=== PATIENT | female | born 1990 | race Caucasian/White ===

== ENCOUNTER → 2018-04-24 | Outpatient (CLI) | payer OTHER | LOC: ULTRA 14:38 | DX: M71.21 Synovial cyst of popliteal space [Baker], right knee (principal) ==

== ENCOUNTER → 2018-07-16 | Outpatient (CLI) | payer OTHER | LOC: ULTRA 16:28 | DX: M25.461 Effusion, right knee (principal); M79.661 Pain in right lower leg ==

== ENCOUNTER 2018-09-17 05:19 | Observation (INO) | payer OTHER ==
[~2018-09-17] VITALS: Ht 175.3 cm; Wt 85.7 kg
[~2018-09-17 05:19] MED LIST: VENTOLIN HFA 1818 GM INH
[2018-09-17 10:22] VITALS: BP 148/87
[2018-09-17 19:03] VITALS: BP 133/72
[2018-09-18 03:21] VITALS: BP 118/66
[2018-09-18 07:20] VITALS: BP 123/85
--- NOTE | 2018-09-18 10:28 | O ---
[address] [address] OPERATIVE REPORT Name: SATISH LEVY Room #: 418-P [facility]#: [id number] Admission: 09/17/18 ������������������ Attend Phys: Varinder Hilario MD Discharge: ������������������ Date of : [birth year] Report #: [id number] THIS REPORT FOR: //name// CC: CAROL ANN physician/PCP Varinder Hilario DATE OF SERVICE: 09/17/2018 SERVICE: Orthopedics. FACILITY: [facility]. SURGEON: Varinder Hilario MD FUNDRAISING DIRECTOR: Afshan Garcia NP. INDICATION FOR FUNDRAISING DIRECTOR: Extremity positioning, retraction, assistance with the grafting and reconstruction and hardware implantation assistance. PREOPERATIVE DIAGNOSES: 1. High-grade articular cartilage lesion, right femur. 2. Right knee pain and swelling. 3. Patellar maltracking, right knee. 4. Patella carisa, right knee. POSTOPERATIVE DIAGNOSES: 1. High-grade articular cartilage lesion, right femur. 2. Right knee pain and swelling. 3. Patellar maltracking, right knee. 4. Patella carisa, right knee. 5. Adhesions, right knee. PROCEDURES: 1. Open matrix based autologous chondrocyte implantation, right knee (EMILY). 2. Anterior medial and distalizing tibial tubercle osteotomy, right knee. 3. Lateral release, right knee (distal structures only). 4. Open lysis of adhesions, right knee. ANESTHESIA TYPE: General with regional. COMPLICATIONS: None. DRAINS: None. SPECIMENS: None. [address] [address] OPERATIVE REPORT Name: SATISH LEVY Room #: 418-P [facility]#: [id number] Admission: 09/17/18 ������������������ Attend Phys: Varinder Hilario MD Discharge: ������������������ Date of : [birth year] Report #: [id number] FINDINGS: 1. Two articular cartilage grafts, one placed at the medial trochlea where an insufficient healing response was noted of the articular cartilage from chondroplasty, second was of the medial femoral condyle. 2. Tibial tubercle osteotomy performed to address the patellar instability and maltracking as well as patella carisa with approximately 3 mm of distalization. HISTORY: The patient is a young lady with a history of significant lifestyle limiting right knee pain that had failed all conservative measures including rest, activity modifications, physical therapy, injections, oral medicines and modalities. 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 She underwent chondroplasty and arthroscopy with cartilage biopsy for planned staged articular cartilage grafting, ultimately electing to proceed with stage 2 as she had failed to have adequate relief from stage 1. Risks, benefits, alternatives and indications for the surgery discussed with her in detail. Risks include but not limited to pain, bleeding, infection, injury to nerves or blood vessels, persistent pain despite surgical intervention, progression of any preexisting chondral injury, stiffness, need for further surgery as well as complications related to anesthesia such as stroke, heart attack, pulmonary complications, thromboembolic disease and . PROCEDURE IN DETAIL: After right lower extremity was correctly identified in preoperative holding as operative extremity, the patient underwent placement of a single shot regional nerve block. She was then taken to the operating room where general anesthesia was induced without complication. She was padded appropriately. Prophylactic antibiotics were administered at appropriate time. Tourniquet was applied to right leg. Right lower extremity was prepped and draped in standard sterile fashion. Time-out procedure was performed. Esmarch was used to exsanguinate. Tourniquet was inflated to 250 mmHg. Anterior approach was made to the knee with a standard medial parapatellar arthrotomy. The patient was noted to have a fair amount of adhesions present. She had experienced a very slow postoperative course after the first surgery with significant guarding and ambulation limitations which we were eventually able to work through by continued counseling and engagement through the physical therapy team, ultimately achieving acceptable range of motion; however, she did have a fair amount of these adhesions that had formed in the interim. She had a sheet of scarring around the front of the knee that incorporated the retropatellar tendon fat pad as well as anterior horn of the medial meniscus with some tethering of the meniscus. The retropatellar tendon fat pad was resected. A lateral release was performed of the distal half of the lateral retinacular structures. Proximal release was not performed in order to preserve the vascularity of the patella superolaterally. In the exposure of the articular cartilage, pathology was visualized. The ACL was intact. The [address] [address] OPERATIVE REPORT Name: MILDREDSATISH M Room #: 418-P [facility] M.R.#: [id number] Admission: 09/17/18 ������������������ Attend Phys: Varinder Hilario MD Discharge: ������������������ Date of : 89 Report #: [id number] compartment was intact. The patella was intact, although it did track laterally. I used a saw then to perform an oblique tibial tubercle osteotomy and then resected the distal 3 mm of the osteotomized tibial tubercle segment in order to adequately advance the tubercle distally. She had a fair amount of small venous structures, which I coagulated during the exposure meticulously in order to minimize the amount of bleeding we encountered when the tourniquet came down and then postoperatively in order to avoid any unnecessary insult to the chondral sites that were being implanted. The articular cartilage was exposed. The anterior horn takedown was required in order to access the medial compartment fully. This was repaired at the end. The lysis of adhesions was completed sharply during the exposure as well. At this point, the templates were used to assess the size of the defects. Two oval templates were used with the smallest for the trochlear lesion and then the medium sized for the medial femoral condyle lesion. Sharp blade was then used to resect the chondral debris and the ring curette used to take it down to the calcified cartilage layer in a typical preparation technique. Tourniquet was let down. A thrombin-soaked Gelfoam was placed in the defects. There was minimal bleeding in the articular cartilage defects. Hemostasis was achieved in the soft tissues and the arthrotomy. The graft was then prepared and a thin layer of fibrin glue was placed at the base of the defects and then the grafts were laid in place and then the fibrin glue was allowed to cure. A perimeter of fibrin glue was then applied to the edges and allowed to cure as well. There was an area on the anterolateral aspect of the medial femoral condyle lesion that did not achieve complete coverage of the fibrin glue and even with reapplication, the gravity was pulling it away, so I felt like reinforcement was most appropriate and used a total of 5 sutures to secure this in the original ACI surgical technique with a 6-0 Vicryl suture and this provided good secure repair of the matrix membrane and the defect. The wound was then gently irrigated. It was flexed and extended to ensure that there was no instability of the cartilage graft and then we proceeded to fix the osteotomy. While the tibial tubercle was held, translated medially slightly anteriorly and then distally, 2.0 K-wires were used to provisionally fix the tibial tubercle and then these were switched to a 4.0 fully threaded non-cannulated cortical screws with good compression achieved at the fracture, some residual bone graft that had been obtained in the exposure was placed at the lateral aspect of the osteotomy and then again we irrigated the wound, confirmed hemostasis and closed the arthrotomy with 0 Vicryl suture in [id number] fashion. The skin was closed with 2-0 Vicryl, followed by running subcuticular 3-0 Monocryl. Dermabond and sterile dressing was applied. A compression stocking, followed by a PolarCare device and a hinged knee brace set at 0-30 degrees was applied as well. [address] [address] OPERATIVE REPORT Name: SATISH LEVY Lonnie Room #: 418-P [facility].#: [id number] Admission: 09/17/18 ������������������ Attend Phys: Varinder Hilario MD Discharge: ������������������ Date of : [birth year] Report #: [id number] The patient was awakened from anesthesia and taken to recovery room in stable condition. There were no complications. All counts were reported as correct. ��������������������������������������������� <ELECTRONICALLY SIGNED> ���������������������������������������� By: Varinder Hilario MD ��������������������������������������������� 09/18/18 1028 0616 2 Varinder Hilario MD /[place]
[2018-09-18 11:53] VITALS: BP 123/85
[2018-09-18 14:08] VITALS: BP 123/85
== END 2018-09-18 14:12 | disposition home or self-care (01) ==
LOC: OR 05:19 → TBA 05:19 → OR 10:16 → 4E 17:14 → OR 17:15 → 4E 17:15 → ENTRNSPT 09-18 13:35 → EDTRNSPTSTS 09-18 13:37 → 4E 09-18 14:12
PROVIDERS: ADMIT Orthopaedic Surgery Sports Medicine
DX: M22.41 Chondromalacia patellae, right knee (principal); M24.151 Other articular cartilage disorders, right hip; M22.2X1 Patellofemoral disorders, right knee; M23.8X9 Other internal derangements of unspecified knee; Z79.899 Other long term (current) drug therapy
CPT/HCPCS: 10783; 50010; 50101; 50386; 50951; 50954; 51320; 51332; 51437; 52001; 52256; 52282; 53337; 54118; 56521; 56527; 56528; 56667; 57091; 57103; 57180; 62110; 62900; 64039; 70005

== ENCOUNTER 2021-02-27 14:34 | Emergency (ER) | payer BC, OTHER ==
[~2021-02-27] VITALS: Ht 175.3 cm; Wt 88.5 kg
[2021-02-27 15:07] LABS: CALCIUM 8.8 mg/dL (8.5-10.1); CREATININE 0.8 mg/dL (0.6-1.0); POTASSIUM 3.4 mmol/L (3.5-5.1)
[2021-02-27 15:12] LABS: ALBUMIN 3.5 g/dL (3.4-5.0); TOTAL BILIRUBIN 0.3 mg/dL (0.2-1.0); TOTAL PROTEIN 7.5 g/dL (6.4-8.2)
[2021-02-27 15:22] LABS: ABSOLUTE NEUTROPHILS 12.2 thou/uL (1.4-8.2); BASOPHILS 0.4 % (0.0-2.0); EOSINOPHILS 0.3 % (0.0-3.0); HEMATOCRIT 37.8 % (37.0-47.0); MCH 29.4 pg (26.0-34.0); MCHC 34.3 g/dL (28.0-37.0); MCV 85.8 fL (80.0-100.0); MONOCYTES 5.6 % (1.0-8.0); PLATELET COUNT 331 thou/uL (150-400); POLYS 85.7 % (36.0-66.0); RBC 4.41 mil/uL (4.20-5.00); WBC 14.2 thou/uL (4.0-11.0)
[2021-02-27] MEDS ORDERED: ONDANSETRON ODT4 MG PO (17:26)
[2021-02-27] MEDS ORDERED: TRAMADOL 50 MG50 MG PO (17:26)
[2021-02-27] MEDS ORDERED: FLOMAX0.4 MG PO (17:26)
[2021-02-27 17:30] VITALS: BP 159/105
== END 2021-02-27 17:30 | disposition home or self-care (01) ==
LOC: ER 14:34
PROVIDERS: Physician Assistant
DX: N20.0 Calculus of kidney (principal); Z79.899 Other long term (current) drug therapy; Z88.0 Allergy status to penicillin